=== PATIENT | female | born 1960 | race Caucasian/White ===

== ENCOUNTER 2017-12-10 08:16 | Observation (INO) | payer BC ==
[2017-12-10 08:41] LABS: #Lymphocytes 2.3 thou/uL (1.20-3.40); #Monocytes 0.4 thou/uL (0.11-0.59); #Neutrophils 3.1 thou/uL (1.40-6.50); %Basophils 0.8 % (0.0-1.0); %Eosinophils 0.7 % (0.0-10.0); %Lymphocytes 39.3 % (21.0-51.0); %Monocytes 6.5 % (0.0-10.0); %Neutrophils 52.8 % (42.0-75.0); Hemoglobin 16.3 g/dL (12.0-16.0); Mean Corpuscular HGB CONC 35.1 g/dL (32.0-36.0); Mean Corpuscular Hemoglobin 31.2 pg (27.0-31.0); Mean Corpuscular Volume 88.9 fL (78.0-98.0); Platelet Count 171 thou/uL (130-400); RBC Distribution Width 12.1 % (11.5-14.5); Red Blood Cell (RBC) Count 5.22 mill/uL (4.20-5.40); White Blood Cell (WBC) Count 5.8 thou/uL (4.8-10.8)
[2017-12-10] MEDS ORDERED: Nitroglycerin 0.4 MG TAB (25 Tab Bottle) ONE (08:43)
[2017-12-10 09:10] LABS: ALT (SGPT) 27 U/L (8-55); AST (SGOT) 20 U/L (5-34); Albumin 4.3 g/dL (3.5-5.0); Alkaline Phosphatase 109 U/L (40-150); Anion Gap 11 mmol/L (10-20); BUN (Urea Nitrogen) 10 mg/dL (9.8-20.1); Bilirubin, Total 0.7 mg/dL (0.2-1.2); CK (CPK) 80 U/L (29-168); Calc. Creatinine Clearance 0 mL/min (70-130); Calcium 9.4 mg/dL (7.8-10.44); Carbon Dioxide 28 mmol/L (22-29); Chloride 104 mmol/L (98-107); Estimated GFR-MDRD 74; Globulin 2.9 g/dL (2.4-3.5); Glucose 105 mg/dL (70-105); Lipase 34 U/L (8-78); Potassium 3.7 mmol/L (3.5-5.1); Protein, Total 7.2 g/dL (6.0-8.3); Sodium 139 mmol/L (136-145)
[2017-12-10 09:14] LABS: CKMB 1.1 ng/mL (0-6.6); Troponin I Less than 0.010 ng/mL (< 0.028)
--- NOTE | 2017-12-10 09:36 | RAD ---
AP CHEST: History: Chest pain. Date: 12-10-17 FINDINGS: The lungs are well aerated. No evidence of active intrathoracic disease is seen. No evidence of effus ions, pneumonia, or pneumothorax is seen. IMPRESSION: Unremarkable AP chest. POS: C
[2017-12-10 09:57] LABS: Bilirubin Negative (Negative); Blood, Urine Negative (Negative); Clarity CLEAR (Clear); Glucose, Urine (Dipstick) Negative (Negative); Leukocyte Negative (Negative); Nitrite Negative (Negative); Protein, Urine (Dipstick) Negative (Neg-Trace); Specific Gravity, Urine 1.007 (1.002-1.036); Urobilinogen 0.2 mg/dL (0.2-1.0); pH, Urine 6.5 (5.0-9.0)
[2017-12-10] MEDS ORDERED: Nitroglycerin 2% Ointment 1 INCH/1 GM Packet ONE (10:24)
[2017-12-10] MEDS ORDERED: Acetaminophen 650 MG Suppository PR PRN (11:30)
[2017-12-10] MEDS ORDERED: Bisacodyl 5 MG TAB PO PRN (11:30)
[2017-12-10] MEDS ORDERED: Nitroglycerin 0.4 MG TAB (25 Tab Bottle) PO PRN (11:30)
[2017-12-10] MEDS ORDERED: Acetaminophen 325 MG TAB PO PRN (11:30)
--- NOTE | 2017-12-10 12:03 | HP ---
PRIMARY CARE PROVIDER: Antonio Heck M.D. CHIEF COMPLAINT: Chest pain. HISTORY OF PRESENT ILLNESS: Ms. Cutler is a pleasant 57-year-old lady who was seen at [facility] on 12/10/2017. She reports that she has been having chest pain for the last 1 week. She describes it as retrosterna l, sharp, 7-8/10 at its worst, on and off. No known relieving factors, although Aleve helped a littl e. She reports that it was accompanied by nausea and lightheadedness as well as shortness of breath. She reports that it is nonradiating, but is sometimes accompanied by pain between her shoulder blad es. She quit smoking 3 days ago. She came to the emergency room because of ongoing chest pain. REVIEW OF SYSTEMS: All other systems reviewed and found to be negative. PAST MEDICAL HISTORY: None. PAST SURGICAL HISTORY: Hysterectomy and tonsillectomy. SOCIAL HISTORY: Patient quit smoking 3 days ago. She denies any alcohol use or recreational drug us e. FAMILY HISTORY: Her mother had myocardial infarction. Her father had congestive heart failure. ALLERGIES: No known drug allergies. CURRENT MEDICATIONS: None. PHYSICAL EXAMINATION: GENERAL: On examination, Ms. Cutler is awake and alert, not in acute distress. VITAL SIGNS: Blood pressure is 132/82, pulse 72, respiratory rate 17, and oxygen saturation 96% on r oom air. She is afebrile. EYES: No scleral icterus. No conjunctival pallor. ENT: Moist mucosal membranes, no oropharyngeal erythema or exudates. NECK: Supple, nontender. Trachea is midline. RESPIRATORY: Accessory muscles of breathing are not active. Chest wall movements are symmetric bila terally. LUNGS: Clear to auscultation, without wheeze, rhonchi or crepitations. CARDIOVASCULAR: S1 and S2 are heard, regular. Peripheral pulses are palpable. No carotid bruit, no pericardial rub. ABDOMEN: Soft, nontender, bowel sounds heard, no hepatomegaly, no splenomegaly. NEUROLOGIC: Cranial nerves II-XII intact. Deep tendon reflexes 2+. MUSCULOSKELETAL: Power is 5/5 in all 4 extremities. SKIN: No rashes or subcutaneous nodules. LYMPHATIC: No cervical lymphadenopathy. PSYCHIATRIC: Normal mood, normal affect, patient is oriented to person, place, and time. IMAGING DATA AND LABORATORY DATA: Ms. Cutler's labs and investigations were reviewed. I review ed her electrocardiogram, which shows normal sinus rhythm, T-wave flattening in the anterior leads as well as inferior leads. I also reviewed her chest x-ray, which does not show any pulmonary infiltra basim. She has a normal white count, elevated hemoglobin of 16.3, normal platelet count, normal compre hensive metabolic profile, normal lipase, normal BNP and normal troponin I. Urinalysis is normal. ASSESSMENT AND PLAN: Ms. Cutler is a pleasant 57-year-old lady who was seen at [facility] on 12/10/2017. Her problem list includes: 1. Chest pain: Patient will be admitted to the hospital for further workup, including to rule out c ardiac causes and quality assurance monitor body. She will be started on p.r.n. nitroglycerin. She will also be started on aspirin. 2. Polycythemia: Likely secondary to tobacco use. Patient will need repeat hemoglobin check after she has quit smoking. If hemoglobin continues to be elevated, she may need further workup with her [facility] provider's office. 3. Tobacco abuse: Patient quit smoking 3 days ago. 4. Abnormal electrocardiogram: We will order nuclear stress test to rule out cardiac causes for her chest pain. Many thanks for allowing me to participate in your patient's care. Please feel free to contact me wi th any questions or concerns. LEVEL OF RISK: High. LEVEL OF COMPLEXITY: High.
[2017-12-10 12:44] LABS: Troponin I Less than 0.010 ng/mL (< 0.028)
[2017-12-10 13:00] VITALS: BMI 35.6
[2017-12-10] MEDS ORDERED: Ondansetron HCl/PF 4 MG/2 ML Vial IVP PRN (13:13)
[2017-12-10] MEDS ORDERED: Ondansetron ODT 4 MG TAB SL PRN (13:13)
[2017-12-10 18:08] LABS: Troponin I Less than 0.010 ng/mL (< 0.028)
[2017-12-11 05:10] LABS: #Basophils 0.1 thou/uL (0.0-0.2); #Eosinphils 0.1 thou/uL (0.0-0.7); #Lymphocytes 2.5 thou/uL (1.20-3.40); #Monocytes 0.4 thou/uL (0.11-0.59); #Neutrophils 3.1 thou/uL (1.40-6.50); %Basophils 0.9 % (0.0-1.0); %Lymphocytes 40.7 % (21.0-51.0); %Monocytes 6.6 % (0.0-10.0); %Neutrophils 50.8 % (42.0-75.0); Hemoglobin 14.9 g/dL (12.0-16.0); Mean Corpuscular HGB CONC 36.9 g/dL (32.0-36.0); Mean Corpuscular Hemoglobin 32.8 pg (27.0-31.0); Mean Corpuscular Volume 88.9 fL (78.0-98.0); Mean Platelet Volume 7.9 fL (7.4-10.4); Platelet Count 164 thou/uL (130-400); RBC Distribution Width 12.1 % (11.5-14.5); Red Blood Cell (RBC) Count 4.55 mill/uL (4.20-5.40); White Blood Cell (WBC) Count 6.1 thou/uL (4.8-10.8)
[2017-12-11 05:13] LABS: MDiff Complete? YES
[2017-12-11 05:14] LABS: Anion Gap 15 mmol/L (10-20); BUN (Urea Nitrogen) 11 mg/dL (9.8-20.1); Calc. Creatinine Clearance 123 mL/min (70-130); Calcium 8.9 mg/dL (7.8-10.44); Carbon Dioxide 20 mmol/L (22-29); Chloride 108 mmol/L (98-107); Estimated GFR-MDRD 81; Glucose 119 mg/dL (70-105); Sodium 139 mmol/L (136-145)
[2017-12-11 08:00] VITALS: BP 134/83; TEMP 98
[2017-12-11] MEDS ORDERED: Aspirin 325 MG TAB PO SCH (09:00)
[2017-12-11] MEDS ORDERED: ADENOSINE 60 MG/20 ML VIAL ONE (10:40)
--- NOTE | 2017-12-11 11:31 | NM ---
CARDIAC SPECT: CLINICAL HISTORY: 57-year-old female with chest pain. TECHNIQUE: A myocardial perfusion scan was performed using the single isotope two day protocol with 30 mCi techn etium-99m sestamibi injected intravenously for both stress and rest images. Pharmacologic stress with Lexiscan was monitored and interpreted by Richie Puga NP. FINDINGS: Homogeneous tracer distribution is seen in the myocardial segments on stress and rest images without fixed or reversible defects. GATED SPECT LVEF: 77%. WALL MOTION EXAM: Normal. IMPRESSION: Normal myocardial perfusion scan. POS: WILLIAM
--- NOTE | 2017-12-11 12:07 | DIS ---
DATE OF ADMISSION: 12/10/2017 DATE OF DISCHARGE: 12/11/2017 PRIMARY CARE PROVIDER: Antonio Heck M.D. DISCHARGE DISPOSITION: Home. DIAGNOSES: Noncardiac chest pain secondary polycythemia, tobacco use. DISCHARGE MEDICATIONS: None. ALLERGIES: None. DIET: As tolerated. PENDING AT TIME OF DISCHARGE: Nothing. The patient admitted to the emergency room to [facility] with chest pain, retrosternal, sharp, some nausea. She was seen in the emergency room. EKG revealed flattening of T waves. PERTINENT LABORATORY DATA: Initial hemoglobin 16.3 dropped down to 14.9, otherwise normal. Cardiac enzymes normal x3. Comp metabolic profile normal. HOSPITAL COURSE: The patient underwent a Lexiscan Cardiolite stress test which is normal. She is no w comfortable. She is being discharged. She has been asked to see Dr. Heck in 1 week. I have discu ssed the fact that I do not know where her chest pain is coming from, but it is not cardiac related. At this point, she should follow with her primary care doctor.
--- NOTE | 2017-12-13 17:31 | EKG ---
Test Reason : Blood Pressure : / mmHG Vent. Rate : 065 BPM Atrial Rate : 065 BPM P-R Int : 136 ms QRS Dur : 076 ms QT Int : 400 ms P-R-T Axes : 002 -25 017 degrees QTc Int : 416 ms Normal sinus rhythm Cannot rule out Anterior infarct , age undetermined No STEMI Abnormal ECG Confirmed by BRITT Joshi, JESSY ([id number]), senior technical editor MELIZA HEATH ([id number] on 12/13/2017 5:31:37 PM Referred By: Confirmed By:JESSY DE LA TORRE M.D.
== END 2017-12-11 12:21 | disposition home or self-care (01) ==
LOC: ERS 08:16 → ERHOLD 10:56 → 2SW 12:27
PROVIDERS: ADMIT Internal Medicine; ATTEND Internal Medicine
DX: R07.89 Other chest pain (principal); D75.1 Secondary polycythemia; Z87.891 Personal history of nicotine dependence
CPT/HCPCS: 36415; 71045; 78452; 80048; 80053; 81003; 82550; 82553; 83690; 83880; 84484; 85025; 93005; 93017; 94760; 96360; 96361; A9500; G0378; J0153

== ENCOUNTER 2022-02-05 19:05 | Emergency (ER) | payer BC ==
[2022-02-05 22:13] LABS: #Eosinphils 0.1 thou/uL (0.0-0.7); #Lymphocytes 3.1 thou/uL (1.20-3.40); #Monocytes 0.5 thou/uL (0.11-0.59); #Neutrophils 4.1 thou/uL (1.40-6.50); %Basophils 0.4 % (0.0-1.0); %Eosinophils 1.4 % (0.0-10.0); %Lymphocytes 39.4 % (21.0-51.0); %Monocytes 6.2 % (0.0-10.0); %Neutrophils 52.5 % (42.0-75.0); Hemoglobin 15.5 g/dL (12.0-16.0); Mean Corpuscular HGB CONC 34.9 g/dL (32.0-36.0); Mean Platelet Volume 8.9 fL (7.4-10.4); Platelet Count 183 thou/uL (130-400); RBC Distribution Width 12.4 % (11.5-14.5); White Blood Cell (WBC) Count 7.9 thou/uL (4.8-10.8)
[2022-02-05 22:27] LABS: ALT (SGPT) 27 U/L (8-55); AST (SGOT) 24 U/L (5-34); Albumin 4.2 g/dL (3.5-5.0); Alkaline Phosphatase 117 U/L (40-110); Anion Gap 17 mmol/L (10-20); BUN (Urea Nitrogen) 12 mg/dL (9.8-20.1); Bilirubin, Total 0.4 mg/dL (0.2-1.2); Calc. Creatinine Clearance 0 mL/min (70-130); Calcium 8.9 mg/dL (7.8-10.44); Carbon Dioxide 19 mmol/L (22-29); Chloride 108 mmol/L (98-107); Estimated GFR 84; Globulin 3.3 g/dL (2.4-3.5); Glucose 154 mg/dL (70-105); Lipase 56 U/L (8-78); Protein, Total 7.5 g/dL (6.0-8.3); Sodium 140 mmol/L (136-145)
[2022-02-05] MEDS ORDERED: Ketorolac Tromethamine 30 MG/ML VIAL ONE (22:59)
[2022-02-05 23:18] LABS: Bilirubin Negative (Negative); Blood, Urine Negative (Negative); Clarity Clear (Clear); Glucose, Urine (Dipstick) Normal (Negative); Ketone, Urine Trace mg/dL (Negative); Leukocyte Negative Leu/uL (Negative); Nitrite Negative (Negative); Protein, Urine (Dipstick) Negative (Neg-Trace); Specific Gravity, Urine 1.031 (1.002-1.036); pH, Urine 6.5 (5.0-9.0)
[2022-02-06] MEDS ORDERED: Iopamidol-370 76% 500 ML 1 ML ONE (10:16)
== END 2022-02-06 01:30 | disposition home or self-care (01) ==
LOC: ERS 19:05
DX: R10.32 Left lower quadrant pain (principal); Z87.891 Personal history of nicotine dependence
CPT/HCPCS: 74177; 80053; 81003; 83690; 84484; 85025; 87086; 93005; 96374; J1885; Q9967